=== PATIENT | male | born 1940 | race Caucasian/White ===

== ENCOUNTER 2023-01-29 14:03 | Observation (INO) ==
[2023-01-29 16:02] LABS: Hematocrit 16.5 % (38-53); Hemoglobin 5.5 g/dL (13.2-16.3); Mean Corpuscular Hemoglobin 29.1 pg (27-33); Mean Corpuscular Hgb Conc 33.5 g/dL (31-36); Mean Platelet Volume 8.8 fL (7.5-11.2); Platelet Count 70 10^3/uL (150-450); Red Blood Count 1.89 10^6/uL (4.06-5.63); Red Cell Distribution Width 13.8 % (12-17); White Blood Count 3.6 10^3/uL (3.6-10.2)
[2023-01-29 16:39] LABS: Albumin 2.1 g/dL (3.2-5.2); Albumin/Globulin Ratio 1.2 (1-3); Calcium 5.2 mg/dL (8.6-10.3); Creatinine, Serum 1.16 mg/dL (0.67-1.17); Globulin 1.7 g/dL (2-4); Magnesium 1.1 mg/dL (1.9-2.7); Potassium 3.1 mmol/L (3.5-5.0); Total Bilirubin 0.9 mg/dL (0.2-1.0); Total Protein 3.8 g/dL (6.4-8.9); eGFR CKD-EPI 62.9 (>60)
[2023-01-29 16:41] LABS: Hematocrit 37.2 % (38-53); Hemoglobin 12.6 g/dL (13.2-16.3); Mean Corpuscular Hemoglobin 28.8 pg (27-33); Mean Corpuscular Hgb Conc 33.9 g/dL (31-36); Mean Platelet Volume 9.3 fL (7.5-11.2); Platelet Count 158 10^3/uL (150-450); Red Blood Count 4.38 10^6/uL (4.06-5.63); Red Cell Distribution Width 13.9 % (12-17); White Blood Count 8.5 10^3/uL (3.6-10.2)
[2023-01-29 17:10] LABS: Albumin 3.4 g/dL (3.2-5.2); Albumin/Globulin Ratio 1.2 (1-3); Calcium 8.3 mg/dL (8.6-10.3); Creatinine, Serum 1.98 mg/dL (0.67-1.17); Globulin 2.9 g/dL (2-4); Potassium 4.6 mmol/L (3.5-5.0); Total Bilirubin 1.4 mg/dL (0.2-1.0); Total Protein 6.3 g/dL (6.4-8.9); eGFR CKD-EPI 33.1 (>60)
[2023-01-29 18:20] LABS: High Sensitivity Troponin 1 Hr 36 pg/mL (<20)
[2023-01-30 05:42] LABS: Hematocrit 36.6 % (38-53); Hemoglobin 12.6 g/dL (13.2-16.3); Mean Corpuscular Hgb Conc 34.4 g/dL (31-36); Mean Corpuscular Volume 84.5 fL (80-97); Mean Platelet Volume 9.6 fL (7.5-11.2); Platelet Count 161 10^3/uL (150-450); Red Blood Count 4.34 10^6/uL (4.06-5.63); Red Cell Distribution Width 14.1 % (12-17); White Blood Count 8.3 10^3/uL (3.6-10.2)
[2023-01-30 06:06] LABS: Albumin 3.3 g/dL (3.2-5.2); Albumin/Globulin Ratio 1.1 (1-3); Calcium 8.3 mg/dL (8.6-10.3); Creatinine, Serum 1.77 mg/dL (0.67-1.17); Magnesium 1.8 mg/dL (1.9-2.7); Potassium 4.6 mmol/L (3.5-5.0); Total Bilirubin 1.3 mg/dL (0.2-1.0); Total Protein 6.3 g/dL (6.4-8.9); eGFR CKD-EPI 37.9 (>60)
[2023-01-30] MEDS ORDERED: Magnesium Sulfate 2 gm BAG 2 GM/50 ML BAG IVPB ONE (08:59)
[2023-01-30] MEDS: Benzocaine/Menthol LOZ PO PRN (10:04)
[2023-01-30] MEDS ORDERED: NS 0.9% 1000 ml BAG 1,000 ML IV ONE (11:20)
[2023-01-31 04:39] LABS: Hematocrit 36.6 % (38-53); Hemoglobin 12.3 g/dL (13.2-16.3); Mean Corpuscular Hemoglobin 28.5 pg (27-33); Mean Corpuscular Hgb Conc 33.6 g/dL (31-36); Mean Corpuscular Volume 84.7 fL (80-97); Mean Platelet Volume 8.6 fL (7.5-11.2); Platelet Count 189 10^3/uL (150-450); Red Blood Count 4.32 10^6/uL (4.06-5.63); Red Cell Distribution Width 13.9 % (12-17); White Blood Count 9.5 10^3/uL (3.6-10.2)
[2023-01-31 05:25] LABS: Calcium 8.2 mg/dL (8.6-10.3); Creatinine, Serum 1.6 mg/dL (0.67-1.17); Potassium 4.3 mmol/L (3.5-5.0); eGFR CKD-EPI 42.8 (>60)
[2023-01-31] MEDS: Benzocaine/Menthol LOZ PO PRN (10:57)
[2023-01-31 16:52] VITALS: BP 97/61
== END 2023-01-31 16:50 | disposition home or self-care (01) ==
LOC: ED 14:03 → EDHOLD 14:03 → SUATTDRO 15:27 → EDHOLD 01-30 15:24 → MEDTELE 01-31 08:05
PROVIDERS: ADMIT Internal Medicine Hematology & Oncology; ATTEND Hospitalist